=== PATIENT | male | born 1935 | race African-American/Black ===

== ENCOUNTER 2018-07-16 15:02 | Inpatient (IN) | payer MEDICARE, MEDICAID ==
[2018-07-16 16:03] LABS: #Eosinphils 0.1 thou/uL (0.0-0.7); #Lymphocytes 0.7 thou/uL (1.20-3.40); #Neutrophils 6.2 thou/uL (1.40-6.50); %Basophils 0.2 % (0.0-1.0); %Eosinophils 0.7 % (0.0-10.0); %Lymphocytes 8.3 % (21.0-51.0); %Monocytes 12.9 % (0.0-10.0); %Neutrophils 77.8 % (42.0-75.0); Hemoglobin 11.7 g/dL (14.0-18.0); Mean Corpuscular HGB CONC 31.1 g/dL (32.0-36.0); Mean Corpuscular Hemoglobin 31.5 pg (27.0-31.0); Mean Platelet Volume 9.2 fL (7.4-10.4); Platelet Count 269 thou/uL (130-400); RBC Distribution Width 13.5 % (11.5-14.5)
[2018-07-16 16:24] LABS: ALT (SGPT) 17 U/L (8-55); AST (SGOT) 25 U/L (5-34); Alkaline Phosphatase 80 U/L (40-150); Anion Gap 13 mmol/L (10-20); BUN (Urea Nitrogen) 17 mg/dL (8.4-25.7); Bilirubin, Total 0.7 mg/dL (0.2-1.2); CK (CPK) 37 U/L (30-200); Calc. Creatinine Clearance 0 mL/min (70-130); Calcium 10.1 mg/dL (7.8-10.44); Carbon Dioxide 33 mmol/L (23-31); Chloride 92 mmol/L (98-107); Estimated GFR-MDRD Greater than 90; Globulin 3.2 g/dL (2.4-3.5); Glucose 124 mg/dL (83-110); Potassium 5.6 mmol/L (3.5-5.1); Protein, Total 7.2 g/dL (5.8-8.1); Sodium 132 mmol/L (136-145)
--- NOTE | 2018-07-16 16:26 | CT ---
CT HEAD WITHOUT CONTRAST: Date: 07/16/18 Multiple axial tomograms obtained through the head without IV enhancement. INDICATION: Syncope with fall and injury to head. FINDINGS: Ventricles have normal size and position. There is no evidence of intracranial hemorrhage. No mass, e ana lilia, or infarct identified. Sinuses and mastoids are aerated. IMPRESSION: No acute abnormality identified. POS: [facility]
[2018-07-16 16:28] LABS: CKMB 2.9 ng/mL (0-6.6); Troponin I Less than 0.010 ng/mL (< 0.028)
--- NOTE | 2018-07-16 16:28 | RAD ---
CHEST 1 VIEW: Date: 07/16/18 INDICATION: History of syncopal episode. COMPARISON: Prior exam dated 04/18/16. FINDINGS: Severe emphysema is stable. Mild cardiomegaly is stable. No pleural effusion or pneumothorax is evide nt. Chronic osseous changes are similar. IMPRESSION: Stable emphysema. POS: [facility]
--- NOTE | 2018-07-16 16:29 | RAD ---
AP PELVIS: Date: 07/16/18 HISTORY: Fall with injury to pelvis. FINDINGS: Acute angulation in the subcapital region anteriorly on the right suggests a subcapital fracture. Pel vis appears intact. IMPRESSION: Evidence of a right subcapital fracture. POS: [facility]
--- NOTE | 2018-07-16 16:31 | RAD ---
RIGHT HIP 2 VIEWS: Date: 07/16/18 HISTORY: Right hip pain. FINDINGS: Somewhat unusual angularity of the superior femoral neck margin at the subcapital level. Possible efren ency along the superior margin. The cortical trabeculae extending across the inferior femoral neck an d into the head are intact, however. Mild degenerative changes of the hip. IMPRESSION: Conflicting findings regarding the possibility of a mildly angulated but nondisplaced subcapital frac ture. If symptoms warrant, please consider CT of the hip for better characterization. POS: [facility]
--- NOTE | 2018-07-16 17:11 | CT ---
CT PELVIS NONCONTRAST: 07/16/18 HISTORY: Fall. Hip pain. FINDINGS: Coronal images best demonstrate a very subtle impaction type fracture with minimal valgus angulation at the subcapital level of the right hip. Mild degenerative changes of the hips. Osseous structures are demineralized. Calcification throughout the arterial structures. IMPRESSION: Very subtle impacted and angulated subcapital fracture right hip. Findings were called to Dr. Garcia in the Emergency Department at 1638 hours. Code CR POS: [facility]
[2018-07-16 18:16] LABS: Bilirubin Negative (Negative); Blood, Urine Small (Negative); Clarity CLOUDY (Clear); Glucose, Urine (Dipstick) Negative (Negative); Leukocyte Small (Negative); Nitrite Positive (Negative); Protein, Urine (Dipstick) Negative (Neg-Trace); Specific Gravity, Urine 1.014 (1.002-1.036); Urobilinogen 0.2 mg/dL (0.2-1.0); pH, Urine 5.5 (5.0-9.0)
[2018-07-16 18:19] LABS: Bacteria/HPF 1+ HPF (None Seen); Pathc Cast-AUWi Flag 5.08 (0-2.49); RBC/HPF 0-3 HPF (0-3)
[2018-07-16 18:23] LABS: Hyaline Casts/LPF 0-3 HYALINE CAST LPF (0-3 Hyaline); Manual Microscopic Reviewed? No Path Casts Seen; Renal Epithelial None Seen HPF (0-3); Transitional Epithelial NONE SEEN HPF (0-3)
--- NOTE | 2018-07-16 18:41 | PDOC.FPRHP ---
- History of Present Illness Chief Complaint: Syncope History of Present Illness: Mr Elizondo is a 82yo pmh of COPD, HTN, HLD, reported hx of FL, presents with hip fracture after fall. Pt is a resident at the [facility]. Per nurse who cares for him daily he sits on the edge of his bed with his feet on the floor and will fall asleep and fall off the bed face first. This has been happening more frequently recently. He was found down and pt reports hitting his head. Reports not remembering fall. Reports pain in right hip. Also endorses dysuria and frequency. Reports FL >5 years ago and last echo >5 years ago. Per nursing staff pt has hx of frequently pocketing his pills in his cheek as he does not like to take them. He is on 3L O2 NC but turns it up to 4-5L himself. Reports SpO2 is typically 98-100% when they check. ED Course: Morphine 4mg - Allergies/Adverse Reactions Allergies Allergy/AdvReac Type Severity Reaction Status Date / Time No Known Drug Allergies Allergy Verified 04/18/16 04:20 - Home Medications Medication Instructions Recorded Confirmed Type Acetaminophen 650 mg PO Q6HR PRN 04/18/16 07/16/18 History Amlodipine Besylate [amLODIPine 10 mg PO DAILY 04/18/16 07/16/18 History Besylate] Furosemide [Lasix] 40 mg PO DAILY 04/18/16 07/16/18 History Pravastatin Sodium [Pravachol] 20 mg PO HS 04/18/16 07/16/18 History Ipratropium [Atrovent HFA] 2 puff INH QID #0 inh 04/22/16 07/16/18 Rx Albuterol Sulfate [Proair 90 mcg IH Q4H PRN 07/16/18 07/16/18 History Respiclick] Bimatoprost [Lumigan] 5 ml OP HS 07/16/18 07/16/18 History Gabapentin 300 mg PO HS 07/16/18 07/16/18 History Mag Hydrox/Aluminum Hyd/Simeth 30 ml PO QID PRN 07/16/18 07/16/18 History [Alum/Mag Hydroxide/Simethicone Susp] Magnesium Hydroxide [Milk of 30 ml PO DAILY PRN 07/16/18 07/16/18 History Magnesia] Mirtazapine [Remeron] 15 mg PO QAM 07/16/18 07/16/18 History Multivitamin W/ Minerals 1 tab PO DAILY 07/16/18 07/16/18 History [Theragran M] Potassium Chloride [K-Dur] 20 meq PO TID 07/16/18 07/16/18 History Promethazine [Phenergan] 25 mg PO Q6HR PRN 07/16/18 07/16/18 History Spironolactone 50 mg PO BID 07/16/18 07/16/18 History Tiotropium [place] [Spiriva 2 inh IH BID 07/16/18 07/16/18 History Respimat] - History PMHx: COPD, CAD, HLD, HTN, Dementia, CHF, Iron Def Anemia, GERD. Pt report FL > 5yrs ago but per assisted no hx of FL. PSHx: Hernia repair, Leg "steel vaughn placed" FHx: Sister- COPD Social: Lives at [facility]. Smoked tobacco 1.5pks/day 30-40 year- quit 10yrs ago. Denies drug or alcohol use. - Review of Systems General: denies: fever/chills, weight/appetite/sleep changes Eyes: denies: eye pain, vision changes ENT: denies: nasal congestion, rhinorrhea Respiratory: denies: cough, congestion, shortness of breath Cardiovascular: reports: edema. denies: chest pain Gastrointestinal: denies: nausea, vomiting, diarrhea, constipation Genitourinary: denies: dysuria, polyuria Skin: denies: rashes, lesions Musculoskeletal: reports: pain (right hip). denies: stiffness Neurological: reports: syncope. denies: numbness - Vital signs BP: 148/85 HR: 89 RR: 22 Tmax: 98.2 Pox: 100% on 3L Wt: 52.4kg - Physical Exam Constitutional: NAD, awake, alert and oriented, well developed HEENT: normocephalic and atraumatic, PERRLA, conjunctiva clear, normal nasal mucosa, MMM, oropharynx clear Neck: supple, trachea midline, no JVD Heart: pulses present (radial), other (2+ pitting edema to knees) -Heart: Distant heart sounds -Lungs: Wheezing bilaterally Abdomen: soft, non-tender, bowel sounds present Musculoskeletal: normal structure, normal tone Skin: capillary refill <2 seconds, other (venous stasis dermatitis) Psychiatric: other (A&Ox3 but not cooperative with answering questions. FDC reports this is typical behavior for him.) FMR H&P: Results - Labs Result Diagrams: 07/16/18 15:53 07/16/18 15:53 Lab results: WBC 8.0 thou/uL (4.8-10.8) 07/16/18 15:53 Hgb 11.7 g/dL (14.0-18.0) L 07/16/18 15:53 Hct 37.5 % (42.0-52.0) L 07/16/18 15:53 MCV 101.0 fL (78.0-98.0) H 07/16/18 15:53 Plt Count 269 thou/uL (130-400) 07/16/18 15:53 Neutrophils % 77.8 % (42.0-75.0) H 07/16/18 15:53 Sodium 132 mmol/L (136-145) L 07/16/18 15:53 Potassium 5.6 mmol/L (3.5-5.1) H 07/16/18 15:53 Chloride 92 mmol/L (98-107) L 07/16/18 15:53 Carbon Dioxide 33 mmol/L (23-31) H 07/16/18 15:53 BUN 17 mg/dL (8.4-25.7) 07/16/18 15:53 Creatinine 0.93 mg/dL (0.6-1.3) 07/16/18 15:53 Glucose 124 mg/dL (83-110) H 07/16/18 15:53 Calcium 10.1 mg/dL (7.8-10.44) 07/16/18 15:53 Total Bilirubin 0.7 mg/dL (0.2-1.2) 07/16/18 15:53 AST 25 U/L (5-34) 07/16/18 15:53 ALT 17 U/L (8-55) 07/16/18 15:53 Alkaline Phosphatase 80 U/L (40-150) 07/16/18 15:53 Creatine Kinase 37 U/L (30-200) 07/16/18 15:53 CK-MB (CK-2) 2.9 ng/mL (0-6.6) 07/16/18 15:53 Serum Total Protein 7.2 g/dL (5.8-8.1) 07/16/18 15:53 Albumin 4.0 g/dL (3.4-4.8) 10 15:53 Lipase 53 U/L (8-78) 07/16/18 15:53 Urine Ketones Negative mg/dL (Negative) 07/16/18 18:05 Urine Blood Small (Negative) H 07/16/18 18:05 Urine Nitrite Positive (Negative) H 07/16/18 18:05 Ur Leukocyte Esterase Small (Negative) H 07/16/18 18:05 Urine RBC 0-3 HPF (0-3) 07/16/18 18:05 Urine WBC 4-6 HPF (0-3) H 07/16/18 18:05 Ur Squamous Epith Cells 4-6 HPF (0-3) H 07/16/18 18:05 Urine Bacteria 1+ HPF (None Seen) H 07/16/18 18:05 - Radiology Interpretation CT scan - head Status: report reviewed by me Additional comment: No acute findings CT scan - pelvis Status: report reviewed by me Additional comment: subtle impacted & angulated subcapital fx of right hip Chest x-ray Status: report reviewed by me Additional comment: Stable emphysema Other Status: report reviewed by me Additional comment: Xray pelvis: Evidence of right subcapital fx Hip 2 view: Conflicting findings regarding possiblity of mildly angulated but nondisplaced subcapital fx. FMR H&P: A/P - Problem List (1) Hip fracture, right Current Visit: Yes Status: Acute Code(s): S72.001A - FRACTURE OF UNSP PART OF NECK OF RIGHT FEMUR, INIT (2) COPD exacerbation Current Visit: No Status: Acute Code(s): J44.1 - CHRONIC OBSTRUCTIVE PULMONARY DISEASE W (ACUTE) EXACERBATION (3) Chronic respiratory failure with hypoxia Current Visit: No Status: Chronic Code(s): J96.11 - CHRONIC RESPIRATORY FAILURE WITH HYPOXIA (4) Dyslipidemia Current Visit: No Status: Chronic Code(s): E78.5 - HYPERLIPIDEMIA, UNSPECIFIED (5) Hypertension Current Visit: No Status: Chronic Code(s): I10 - ESSENTIAL (PRIMARY) HYPERTENSION (6) Macrocytic anemia Current Visit: No Status: Chronic Code(s): D53.9 - NUTRITIONAL ANEMIA, UNSPECIFIED (7) Protein-calorie malnutrition, moderate Current Visit: No Status: Chronic Code(s): E44.0 - MODERATE PROTEIN-CALORIE MALNUTRITION (8) CHF (congestive heart failure) Current Visit: Yes Status: Acute Code(s): I50.9 - HEART FAILURE, UNSPECIFIED - Plan Mr Elizondo is an 82yo male with pmh of COPD, HLD, HTN and dementia presenting with Right hip fracture after fall and found to have mild CHF exacerbation Right hip fracture - Fall 2/2 falling asleep on side of bed, not witness by nursing staff but this is a recurrent event that nursing staff has witnessed in the past - CT: subtle impacted & angulated subcapital fx of right hip - Ortho consulted - Pt refused surgery, plan for nonoperative management - Tramadol and Morphine PRN for pain control - Will admit to tele Mild CHF exacerbation - Per nursing pt pockets pill inside mouth and it is possible he has not been getting his daily lasix - No record of Echo here or per assisted records, pt reports last imaging > 5 yrs - Echo tomorrow - Will hold home lasix and give 40mg IV - BNP ordered - Strict I&Os, daily wts and 1800ml fluid restriction Hyperkalemia - 5.4 in ED - Hold K supplement - Receiving IV lasix which will help correct this - Recheck BMP in AM UTI - UA c/w UTI - Urine Cx pending - Start Ceftriaxone CAD - Pt reports cath >5yrs ago, unknown results - Continue home meds HLD - Continue home meds Protein Calorie Malnutrition - Needle Loom Weaver consult - Will start Ensure TID after meals COPD, stable - Continue home inhalers - Pt on 3L NC at baseline - Will continue O2 Dementia - At baseline, continue to monitor - Continue home Remeron Iron def Anemia - Hgb 11.7 - MCV elevated - Continue to monitor GERD - Continue home meds Code Status: FULL DVT ppx: Lovenox FMR H&P: Upper Level - Pertinent history 82 y/o M w/ PMHx of of COPD on chronic O2 via 3L NC, HTN, and HLD presents for evaluation of LOC w/ fall and subsequent R-hip pain which occurred earlier today. Patient reports he does not remember falling and thinks he hit his head. States that he thinks he was getting up out of bed when it happened. Not taking any blood thinners. Patient is a resident at [facility]. No nursing staff in room. Pt reports cardiac hx w/ FL over 5 years ago. No acute complaints besides R-hip pain w/ movement. Pt reports increased urinary frequency and dysuria. Denies fevers/chills. Contacted assisted. Nurse at assisted notes that he has a hx of falling forward while sitting in chair when he falls asleep. She notes that patient fell asleep while sitting and leaning forward in chair resulting in fall. Nurse noted that he did hit his head. Nursing staff also notes that he has been pocketing his pills including his Lasix. - Pertinent findings BP 148/85 P 89 RR 22 Temp 98.2 DegF O2sat 100% on 3L NC WBC 8.0 Hgb 11.7 Neut 77.8% Na 132 Potassium 5.6 Cl 92 CO2 33 Gluc 124 Trop - <0.01 U/A Small blood, positive nitrite, small LE, 4-6 WBC, 1+ bacteria CXR Stable Emphysema Pelvis/Hip X-ray/CT Subtle angulated and subcapital fracture R-hip Brain CT NAD GEN: NAD, laying in bed w/ NC on HEENT: Normocephalic, atraumatic. Midly dry mucous membranes CARDS: RRR, no mumurs, rubs or gallops. Occasional PVCs noted on single lead monitor while in room PULM: Coarse breath sounds thoughout GI: Soft, non-ttp, no rebound tenderness, no rigidity, no guarding EXT: R-hip TTP. ROM and strength exam deferred 2/2 known R-hip fracture. 2+ pitting edema b/l to knees - Plan Date/Time: 07/16/181840 INishant. Devon Barker MD, have evaluated this patient and agree with findings/plan as outlined by internet e commerce specialist resident. Pertinent changes/additions are listed here. 82 y/o M w/: 1Gound level Fall w/ subsequent R-hip subcaptial fracture - Initial concern for possible syncopal episode from ER. However, upon speaking to [place] low suspicion of syncope w/ patient witnessed falling asleep and falling forward out of chair by nursing staff. - Patient does have a hx of CHF per [place] records and has not been taking his Lasix. Cannot rule out possible underlying arrhythmia as cause of fall. Will plan to admit to telemetry and obtain ECHO for further evaluation of this. - Ortho consulted from ER, awaiting recs - Will have PRN tramadol available for pain control 2) Hyperkalemia - Will hold potassium supplementation and give IV lasix - Likely elevated 2/2 not taking his lasix but continuing to take KCl supplement - Will plan to repeat BMP in 4 hours and again in the AM to monitor - No concerning EKG changes at this time 2) Complicated UTI - U/A consistent w/ UTI from ER - Will obtain UCx and start patient on IV Rocephin 3) Mild CHF Exacerbation - Will give 40 mg IV of Lasix and check BNP to evaluate volume status - Strict I/Os - Daily weights - ECHO as above 4) Chronic Hypoxic Hypercapneic Respiratory Failure 2/2 COPD - Cont. w/ 2-3L NC as this is patients home O2 requirement. Titrate O2 to maintain - Cont. w/ home inhaler regimen. PRN nebs available - Does not appear to be in acute exacerbation at this time 5) HTN -Cont. w/ home BP meds CODE STATUS: Full Code LOS: >2 midnights Diet: HH w/ 1500 mL Fluid restrict Assessment and Plan discussed w/ Attending Dr. Kirill Colindres who is in agreement Attending Addendum - Attending Addendum Date/Time: 07/16/181999 I personally evaluated the patient and discussed the management with Dr. Fair /Lucero. I agree with the History, Examination, Assessment and Plan documented above with any addition or exceptions noted below.
[2018-07-16] MEDS ORDERED: Ondansetron HCl/PF 4 MG/2 ML Vial IVP PRN (21:06)
[2018-07-16] MEDS ORDERED: Ondansetron ODT 4 MG TAB SL PRN (21:06)
[2018-07-16] MEDS ORDERED: Acetaminophen 325 MG TAB PO PRN (21:06)
[2018-07-16] MEDS ORDERED: Morphine 4 MG/ML VIAL SLOW IVP PRN ×2 (21:06→22:06)
[2018-07-16] MEDS ORDERED: Furosemide 40 MG/4 ML VIAL SLOW IVP SCH (22:06)
[2018-07-16] MEDS ORDERED: Ondansetron ODT 4 MG TAB PO PRN (22:06)
[2018-07-16] MEDS ORDERED: traMADol HCl 50 MG TAB PO PRN ×2 (22:06)
[2018-07-16] MEDS ORDERED: Gabapentin 300 MG CAP PO SCH (22:30)
[2018-07-16] MEDS ORDERED: Mometasone/Formoterol 120 PUFF INHALER INH SCH (22:30)
[2018-07-16] MEDS ORDERED: Spironolactone 25 MG TAB PO SCH (22:30)
[2018-07-16] MEDS ORDERED: Ipratropium Oral Inhaler (200 INHALATIONS) INH SCH (22:30)
[2018-07-16] MEDS: cefTRIAXone\\ROCEPHIN 1 GM in Sodium Chloride 0.9% 100 ML IVPB SCH (23:33)
[2018-07-17] MEDS ORDERED: Ipratropium Oral Inhaler (200 INHALATIONS) ONE (06:39)
[2018-07-17] MEDS ORDERED: Mometasone/Formoterol 120 PUFF INHALER ONE (06:39)
[2018-07-17] MEDS: Ipratropium Oral Inhaler (200 INHALATIONS) INH SCH ×4 (06:51→19:02)
[2018-07-17] MEDS: Mometasone/Formoterol 120 PUFF INHALER INH SCH ×2 (06:51→19:17)
[2018-07-17] MEDS ORDERED: Furosemide 40 MG/4 ML VIAL SLOW IVP SCH (09:00)
[2018-07-17] MEDS ORDERED: Prevnar 13-Val Conj/PF 0.5 ML SYRINGE IM ONE (09:00)
[2018-07-17] MEDS: Spironolactone 25 MG TAB PO SCH ×2 (11:19→16:28)
[2018-07-17] MEDS: Enoxaparin Sodium 40 MG/0.4 ML SYRINGE SC SCH (11:19)
[2018-07-17] MEDS: Amlodipine 10 MG TAB PO SCH (11:19)
[2018-07-17] MEDS: Mirtazapine 15 MG TAB PO SCH (11:19)
[2018-07-17] MEDS: Furosemide 40 MG TAB PO SCH (11:51)
[2018-07-17 12:50] LABS: ALT (SGPT) 14 U/L (8-55); AST (SGOT) 20 U/L (5-34); Albumin 3.5 g/dL (3.4-4.8); Alkaline Phosphatase 73 U/L (40-150); Anion Gap 16 mmol/L (10-20); BUN (Urea Nitrogen) 14 mg/dL (8.4-25.7); Bilirubin, Total 0.6 mg/dL (0.2-1.2); Calc. Creatinine Clearance 55 mL/min (70-130); Calcium 9.9 mg/dL (7.8-10.44); Carbon Dioxide 32 mmol/L (23-31); Chloride 89 mmol/L (98-107); Estimated GFR-MDRD Greater than 90; Globulin 3.4 g/dL (2.4-3.5); Glucose 65 mg/dL (83-110); Potassium 4.5 mmol/L (3.5-5.1); Protein, Total 6.9 g/dL (5.8-8.1); Sodium 132 mmol/L (136-145)
--- NOTE | 2018-07-17 15:05 | CON ---
DATE OF CONSULTATION: 07/16/2018 REQUESTING PHYSICIAN: Dr. Fair. HISTORY OF PRESENT ILLNESS: Mr. Elizondo is an 82-year-old gentleman who resides in a half-way in [place] and typically mobilizes with a wheelchair. By report, he was found down at the half-way earlier on the evening of July 16, striking his head. The patient reports that he does not remem teresa the fall. Upon trying to get him back up into a chair, he was found to have right hip pain and a s such, he was transferred to [facility] for workup. Workup included x-rays of the pelvis a nd right hip which showed a valgus impacted femoral neck fracture. The fracture was very hard to see on plain x-ray and CT scan essentially was needed to confirm the fracture was present. Upon my eval uation of Mr. Elizondo, I discussed with him treatment options and he stated "do not want, no cutting o n me." PAST MEDICAL HISTORY: Includes COPD, hypertension, reported history of myocardial infarction, broderick ia, gastroesophageal reflux. PAST SURGICAL HISTORY: Includes herniorrhaphy as well as prior open reduction internal fixation of h is lower extremity. MEDICATIONS: Include Tylenol, amlodipine, Lasix, Pravachol, Atrovent, ProAir, Lumigan, gabapentin, M ilk of Magnesia, vitamin replacement, K-Dur, spironolactone. ALLERGIES: None known. SOCIAL HISTORY: Lives in [facility]. He has a 35-45 pack year history of cigarette smoki ng, although did quit 10 years ago. Denies alcohol or drug use. REVIEW OF SYSTEMS: Denies fevers, chills, or sweats. Denies shortness of breath or recurrent chest pain. Denies numbness or tingling in lower extremity. PHYSICAL EXAMINATION: VITAL SIGNS: Temperature 98.2, heart rate 89, respiratory rate 22, and blood pressure 148/85. The p atient examined in his emergency room bed 20 at [facility]. HEENT: Atraumatic, normocephalic. HEART: Shows a regular rate and rhythm without obvious murmur. LUNGS: Remarkable for mild bilateral wheeze. Chest wall is nontender. ABDOMEN: Benign. PELVIS: Stable to compression. With compression, he does have some mild right groin discomfort. EXTREMITIES: Bilateral upper extremities are atraumatic at shoulder, elbow, wrist and hand. He has normal sensation in the radial, median, and ulnar distributions. Bilateral lower extremities remarka ble for atraumatic knee, ankle and feet. He has intact sensation over the dorsal and plantar surface s of his feet. The right hip is remarkable for no obvious shortening or external rotation, but with range of motion, he does have some groin discomfort. LABORATORY DATA: White count of 8, hematocrit of 37.5 and 268,000 platelets. X-RAYS: AP pelvis as well as 2-view hip x-ray demonstrates a nondisplaced fracture of the femoral ne ck with what appears to be just slight valgus alignment; however, on CT scan, there clearly is a smal l fracture line with a valgus impacted femoral neck, but without significant displacement. ASSESSMENT: An 82-year-old gentleman with minimally displaced valgus impacted femoral neck fracture. PLAN: Today, I had a couple of discussions with patient regarding treatment options. I have recomme nded proceeding with cannulated screw stabilization. The patient again states that he is not interes sonia in anyone cutting on him. I have discussed with patient this is very minimal surgical procedure, would allow him to move more comfortably and freely without risk of displacement of the fracture. H e again states that he is predominantly wheelchair bound and does not wish to have surgery. As such, we will follow patient expectantly. I do not think that his decision is completely out of order giv en the fact that this is a nondisplaced fracture; however, he clearly needs to be bed to chair mobili zed and needs to avoid any weightbearing until early healing takes place. We will follow patient per ipherally while he is in the hospital and then we will need to follow up with us in about 2-3 weeks f or reevaluation and follow up x-ray.
[2018-07-17] MEDS ORDERED: cefTRIAXone\\ROCEPHIN 1 GM in Sodium Chloride 0.9% 100 ML IVPB SCH (15:30)
[2018-07-17] MEDS ORDERED: CEFAZOLIN/Water 2 GM/20 ML SYRINGE SLOW IVP SCH (16:00)
[2018-07-17 16:38] LABS: Hemoglobin 10.8 g/dL (14.0-18.0); Mean Corpuscular HGB CONC 30.1 g/dL (32.0-36.0); Mean Platelet Volume 8.2 fL (7.4-10.4); Platelet Count 198 thou/uL (130-400); Red Blood Cell (RBC) Count 3.49 mill/uL (4.70-6.10); White Blood Cell (WBC) Count 5.2 thou/uL (4.8-10.8)
[2018-07-17 16:39] LABS: Eosinophils 3 % (0-10); Lymphocytes 24 % (21-51); MDiff Complete? YES; Manual Diff?? YES; Monocytes 27 % (0-10); Neutrophil 46 % (42-75)
[2018-07-17 16:40] LABS: Hypochromia SLIGHT = 6-15 cells (100X) (0-5/hpf); PLT Morphology Comment Appears Adequate
[2018-07-17] MEDS: Simvastatin 5 MG TAB PO SCH (20:52)
[2018-07-17] MEDS: Gabapentin 300 MG CAP PO SCH (20:52)
--- NOTE | 2018-07-17 21:36 | CON ---
DATE OF CONSULTATION: 07/17/2018 HISTORY OF PRESENT ILLNESS: Mr. Elizondo is an 82-year-old male who lives at [facility]. T he patient typically will sit on the edge of the bed and sometimes will fall asleep and will fall. Zack campos has had multiple falls. He fell yesterday face first. The patient complains of pain in the right hip and groin region. He was brought to the emergency room and x-rays and CT scan was obtained which showed nondisplaced subcapital femoral neck fracture of the right hip. ALLERGIES: None. MEDICAL ILLNESSES: COPD, coronary artery disease, hypertension, dementia, history of CHF, GERD. PAST SURGICAL HISTORY: Hernia repair and IM rodding of his leg. PHYSICAL EXAMINATION: EXTREMITIES: Examination of the right hip and leg. The patient is able to flex and extend the right hip with some pain. Skin is in good condition. The right lower extremity is neurovascularly intact . He has good peripheral pulses. IMPRESSION: Nondisplaced subcapital femoral neck fracture of the right hip. PLAN: The patient is a good candidate for multiple pinning of the subcapital femoral neck fracture o f the right hip. This would stabilize the fracture, so that he could safely get out of bed and move a round in bed or weightbear as tolerated. If he does not have the surgery, then there would be the pr obability that the fracture would displace and then he would require a bipolar prosthesis which is a much bigger surgery for him. We will schedule the surgery for tomorrow.
[2018-07-17] MEDS: cefTRIAXone\\ROCEPHIN 1 GM in Sodium Chloride 0.9% 100 ML IVPB SCH (23:41)
[2018-07-18 05:48] LABS: ALT (SGPT) 10 U/L (8-55); AST (SGOT) 18 U/L (5-34); Albumin 3.2 g/dL (3.4-4.8); Alkaline Phosphatase 68 U/L (40-150); Anion Gap 11 mmol/L (10-20); BUN (Urea Nitrogen) 17 mg/dL (8.4-25.7); Bilirubin, Total 0.4 mg/dL (0.2-1.2); Calc. Creatinine Clearance 55 mL/min (70-130); Calcium 9.7 mg/dL (7.8-10.44); Carbon Dioxide 35 mmol/L (23-31); Chloride 91 mmol/L (98-107); Estimated GFR-MDRD Greater than 90; Globulin 3.1 g/dL (2.4-3.5); Glucose 66 mg/dL (83-110); Potassium 4.4 mmol/L (3.5-5.1); Protein, Total 6.3 g/dL (5.8-8.1); Sodium 133 mmol/L (136-145)
[2018-07-18] MEDS: Ipratropium Oral Inhaler (200 INHALATIONS) INH SCH ×4 (06:22→19:07)
[2018-07-18] MEDS: Mometasone/Formoterol 120 PUFF INHALER INH SCH ×2 (06:25→19:06)
[2018-07-18 06:39] LABS: Hemoglobin 9.9 g/dL (14.0-18.0); Lymphocytes 18 % (21-51); MDiff Complete? YES; Mean Corpuscular HGB CONC 30.8 g/dL (32.0-36.0); Mean Corpuscular Hemoglobin 31.5 pg (27.0-31.0); Mean Platelet Volume 7.5 fL (7.4-10.4); Monocytes 14 % (0-10); Neutrophil 68 % (42-75); Platelet Count 235 thou/uL (130-400); RBC Distribution Width 12.9 % (11.5-14.5); Red Blood Cell (RBC) Count 3.15 mill/uL (4.70-6.10)
--- NOTE | 2018-07-18 07:12 | PDOC.FM ---
- Subjective Subjective: Patient preparing to head to surgery. No new complaints at this time. - Objective MAR Reviewed: Yes Vital Signs & Weight: Vital Signs (12 hours) Temp Pulse Resp BP Pulse Ox 07/18/18 06:25 85 16 91 L 07/18/18 06:22 85 16 91 L 07/18/18 03:47 98.8 F 95 18 105/55 L 94 L 07/17/18 20:00 98.7 F 90 16 122/63 96 Weight Admit Weight 52.277 kg Weight 52.22 kg Result Diagrams: 07/18/18 04:42 07/18/18 04:42 <Kaylee Yarbrough - Last Filed: 07/18/18 09:36> - Objective Vital Signs & Weight: Vital Signs (12 hours) Temp Pulse Resp BP BP Pulse Ox 07/18/18 20:00 97.4 F L 79 16 111/58 L 94 L 07/18/18 19:07 72 18 100 07/18/18 19:06 72 18 100 07/18/18 16:00 97.6 F 83 16 120/80 92 L 07/18/18 13:57 82 16 95 07/18/18 11:57 92 115/57 L Weight Admit Weight 52.277 kg Weight 52.22 kg I&O: 07/17/18 07/18/18 07/19/18 06:59 06:59 06:59 Intake Total 1110 Output Total 225 Balance 885 Result Diagrams: 07/18/18 04:42 07/18/18 04:42 <Aliya Gutiérrez - Last Filed: 07/18/18 23:46> Phys Exam - Physical Examination Constitutional: NAD Respiratory: clear to auscultation bilateral Cardiovascular: RRR, no significant murmur Gastrointestinal: soft, non-tender, no distention, positive bowel sounds Neurological: non-focal <Kaylee Yarbrough - Last Filed: 07/18/18 09:36> Dx/Plan (1) Hip fracture, right Code(s): S72.001A - FRACTURE OF UNSP PART OF NECK OF RIGHT FEMUR, INIT Status : Acute (2) Chronic respiratory failure with hypoxia Code(s): J96.11 - CHRONIC RESPIRATORY FAILURE WITH HYPOXIA Status: Chronic (3) Dyslipidemia Code(s): E78.5 - HYPERLIPIDEMIA, UNSPECIFIED Status: Chronic (4) Hypertension Code(s): I10 - ESSENTIAL (PRIMARY) HYPERTENSION Status: Chronic (5) Macrocytic anemia Code(s): D53.9 - NUTRITIONAL ANEMIA, UNSPECIFIED Status: Chronic (6) Protein-calorie malnutrition, moderate Code(s): E44.0 - MODERATE PROTEIN-CALORIE MALNUTRITION Status: Chronic (7) CHF (congestive heart failure) Code(s): I50.9 - HEART FAILURE, UNSPECIFIED Status: Acute - Plan Plan: Mr Elizondo is an 82yo male with pmh of COPD, HLD, HTN and dementia presenting with Right hip fracture after fall and found to have mild CHF exacerbation Right hip fracture - Fall 2/2 falling asleep on side of bed, not witness by nursing staff but this is a recurrent event that nursing staff has witnessed in the past - CT: subtle impacted & angulated subcapital fx of right hip - Ortho consulted - Plan for surgery today - Tramadol and Morphine PRN for pain control Mild CHF exacerbation - Per nursing pt pockets pill inside mouth and it is possible he has not been getting his daily lasix - pt reports last imaging >5 yrs - Echo pending - Lasix 40 PO daily - BNP 54 - Strict I&Os, daily wts and 1800ml fluid restriction Hyperkalemia, improved - 5.4 in ED->4.4 - Hold K supplement - Receiving Lasix - Recheck BMP in AM UTI - UA c/w UTI - prelim Urine Cx grew serratia marcescens - Continue Ceftriaxone, will consider transitioning to other abx when sensitivity numbers back CAD - Pt reports cath >5yrs ago, unknown results - Continue home meds HLD - Continue home meds Protein Calorie Malnutrition - Gasket Maker consult - Will start Ensure TID after meals COPD, stable - Continue home inhalers - Pt on 3L NC at baseline - Will continue O2 Dementia - At baseline, continue to monitor - Continue home Remeron Macrocytic anemia - Hgb 11.7->9.9 - MCV elevated - Continue to monitor GERD - Continue home meds Code Status: FULL DVT ppx: Lovenox <Kaylee Yarbrough - Last Filed: 07/18/18 09:36> Attending Addendum - Attending Addendum Date/Time: 07/18/18 [id number] I personally evaluated the patient and discussed the management with Dr. Yarbrough I agree with the History, Examination, Assessment and Plan documented above with any addition or exceptions noted below- Patient justb returned from surgery - had hip pinned. Sleepy and mumbling. Afebrile VSS. A/P: 1) UTI secondary to Serratia; continue current abx. 2) Hip fracture- s/p pin placement. Plans as per ortho. <Aliya Gutiérrez - Last Filed: 07/18/18 23:46>
[2018-07-18] MEDS: Spironolactone 25 MG TAB PO SCH ×2 (08:18→17:33)
[2018-07-18] MEDS ORDERED: Neomycin-Polymyxin 1 ML AMP ONE (09:02)
[2018-07-18] MEDS ORDERED: CEFAZOLIN/Water 2 GM/20 ML SYRINGE ONE (09:07)
[2018-07-18] MEDS ORDERED: Fentanyl 100 MCG/2 ML VIAL ONE (09:39)
[2018-07-18] MEDS ORDERED: Morphine Sulfate 2 MG/ML SYRINGE SLOW IVP PRN (10:55)
[2018-07-18] MEDS ORDERED: Ondansetron HCl/PF 4 MG/2 ML Vial IVP PRN ×2 (10:55→10:58)
[2018-07-18] MEDS ORDERED: Promethazine HCl 25 MG/ML VIAL SLOW IVP PRN (10:55)
[2018-07-18] MEDS ORDERED: Promethazine HCl 25 MG/ML VIAL IM PRN (10:55)
[2018-07-18] MEDS ORDERED: Promethazine 25 MG TAB PO PRN (10:57)
[2018-07-18] MEDS ORDERED: Acetaminophen 325 MG TAB PO PRN (10:57)
[2018-07-18] MEDS ORDERED: Milk Of Magnesia 30 ML UDCUP PO PRN ×2 (10:57→10:58)
[2018-07-18] MEDS ORDERED: Mag-Al Plus 1200 MG/1200 MG/120 MG/30 ML UDCUP PO PRN (10:57)
[2018-07-18] MEDS ORDERED: Cepastat Lozenges 1 LOZ PO PRN (10:58)
[2018-07-18] MEDS ORDERED: Fleet Enema 133 ML BOT PR PRN (10:58)
[2018-07-18] MEDS ORDERED: Bisacodyl 10 MG SUPP PR PRN (10:58)
[2018-07-18] MEDS ORDERED: Ondansetron ODT 4 MG TAB PO PRN (10:58)
--- NOTE | 2018-07-18 11:10 | OP ---
DATE OF PROCEDURE: 07/18/2018 PREOPERATIVE DIAGNOSIS: Nondisplaced impacted subcapital femoral neck fracture of the right hip. POSTOPERATIVE DIAGNOSIS: Nondisplaced impacted subcapital femoral neck fracture of the right hip. PROCEDURE: Multiple pinning of the subcapital femoral neck fracture of the right hip. SURGEON: Charles Rick M.D. ANESTHESIA: General. TECHNIQUE: The patient was given preoperative IV antibiotics, taken to the operating room, placed in a supine position. Satisfactory general anesthesia was performed. The patient was placed on the fr acture table. All bony prominences were well-padded. There was no traction applied to the right low er extremity. The lateral aspect of the right hip and thigh were sterilely prepped and draped in the usual fashion. Under fluoroscopic visualization, appropriate incision site was found and 1.5 cm inc ision was made in the lateral aspect of the proximal thigh. Under fluoroscopic visualization, 2 guid e pins were placed up through the femoral neck crossing the fracture into the femoral head. They wer e measured and two 6.5 cannulated screws were placed into the femoral head and neck providing good fi xation and stability for the femoral neck fracture. The guide pins were removed. The wound was irri gated with antibiotic solution and closed using 3-0 Rapide. Sterile dressing was applied. The patie nt was taken off the fracture table. He was awakened, extubated, and transferred to the [facility] in stable condition. ESTIMATED BLOOD LOSS: None. COMPLICATIONS: None.
[2018-07-18] MEDS ORDERED: PROVENTIL INHALER 6.7 G (200 INHALATIONS) INH PRN (11:30)
[2018-07-18] MEDS ORDERED: Lidocaine 1% PF 5 ML VIAL ONE (11:32)
[2018-07-18] MEDS ORDERED: PROPOFOL 200 MG/20 ML VIAL ONE (11:32)
[2018-07-18] MEDS ORDERED: Ondansetron HCl/PF 4 MG/2 ML Vial ONE (11:32)
[2018-07-18] MEDS: Amlodipine 10 MG TAB PO SCH (11:57)
[2018-07-18] MEDS: Mirtazapine 15 MG TAB PO SCH (11:58)
[2018-07-18] MEDS: Furosemide 40 MG TAB PO SCH (11:58)
[2018-07-18] MEDS: Enoxaparin Sodium 40 MG/0.4 ML SYRINGE SC SCH (12:07)
--- NOTE | 2018-07-18 14:05 | RAD ---
INTRAOPERATIVE FLUOROSCOPIC IMAGING OF RIGHT HIP: Date: 07/18/18 INDICATION: Fracture fixation of right hip. FINDINGS: There are two cannulated screws traversing the femoral head and neck. These traverse the previously d escribed subcapital fracture. IMPRESSION: Intraoperative fluoroscopic imaging of the right hip. POS: ASIYA
[2018-07-18] MEDS: CEFAZOLIN/Water 2 GM/20 ML SYRINGE SLOW IVP SCH (16:25)
[2018-07-18] MEDS: Potassium Chloride 20 MEQ TAB PO SCH ×2 (16:25→21:58)
[2018-07-18] MEDS ORDERED: Non-Formulary Item 1 EACH (Tiotropium Bromide [Spiriva Respimat] 2 INH) IH SCH (21:00)
[2018-07-18] MEDS: Ferrous Gluconate 324 MG TAB PO SCH (21:58)
[2018-07-18] MEDS: Gabapentin 300 MG CAP PO SCH (21:58)
[2018-07-18] MEDS: Senokot S 8.6-50 MG TAB PO SCH (21:59)
[2018-07-18] MEDS: Simvastatin 5 MG TAB PO SCH (21:59)
[2018-07-18] MEDS: Latanoprost 0.005% Ophth Soln 2.5 ml Bottle EA EYE SCH (21:59)
[2018-07-18] MEDS: cefTRIAXone\\ROCEPHIN 1 GM in Sodium Chloride 0.9% 100 ML IVPB SCH (23:33)
[2018-07-19] MEDS: CEFAZOLIN/Water 2 GM/20 ML SYRINGE SLOW IVP SCH (00:37)
[2018-07-19 05:56] LABS: Hemoglobin 10.7 g/dL (14.0-18.0); Mean Corpuscular HGB CONC 30.8 g/dL (32.0-36.0); Mean Corpuscular Hemoglobin 31.7 pg (27.0-31.0); Mean Platelet Volume 7.6 fL (7.4-10.4); Platelet Count 227 thou/uL (130-400); RBC Distribution Width 12.9 % (11.5-14.5); Red Blood Cell (RBC) Count 3.38 mill/uL (4.70-6.10); White Blood Cell (WBC) Count 5.7 thou/uL (4.8-10.8)
[2018-07-19 06:14] LABS: ALT (SGPT) 9 U/L (8-55); AST (SGOT) 25 U/L (5-34); Albumin 3.2 g/dL (3.4-4.8); Alkaline Phosphatase 69 U/L (40-150); Anion Gap 10 mmol/L (10-20); BUN (Urea Nitrogen) 10 mg/dL (8.4-25.7); Bilirubin, Total 0.3 mg/dL (0.2-1.2); Calc. Creatinine Clearance 59 mL/min (70-130); Calcium 9.4 mg/dL (7.8-10.44); Carbon Dioxide 34 mmol/L (23-31); Chloride 90 mmol/L (98-107); Estimated GFR-MDRD Greater than 90; Globulin 3.4 g/dL (2.4-3.5); Glucose 99 mg/dL (83-110); Potassium 4.9 mmol/L (3.5-5.1); Protein, Total 6.6 g/dL (5.8-8.1); Sodium 129 mmol/L (136-145)
[2018-07-19] MEDS: Ipratropium Oral Inhaler (200 INHALATIONS) INH SCH ×4 (06:35→19:03)
[2018-07-19] MEDS: Mometasone/Formoterol 120 PUFF INHALER INH SCH ×2 (06:36→19:05)
--- NOTE | 2018-07-19 06:36 | PDOC.FM ---
- Subjective Subjective: Patient reports his hip is sore this morning. Has been drinking some soda. No new complaints. Says he passes gas infrequently. - Objective MAR Reviewed: Yes Vital Signs & Weight: Vital Signs (12 hours) Temp Pulse Resp BP Pulse Ox 07/19/18 04:00 97.7 F 66 12 125/60 98 07/18/18 20:00 97.4 F L 79 16 111/58 L 94 L 07/18/18 19:07 72 18 100 07/18/18 19:06 72 18 100 Weight Admit Weight 52.277 kg Weight 52.73 kg I&O: 07/17/18 07/18/18 07/19/18 06:59 06:59 06:59 Intake Total 1110 Output Total 225 Balance 885 Result Diagrams: 07/19/18 05:35 07/19/18 05:35 <Kaylee Yarbrough - Last Filed: 07/19/18 10:02> - Objective Vital Signs & Weight: Vital Signs (12 hours) Temp Pulse Resp BP Pulse Ox 07/19/18 11:43 97.5 F L 87 18 119/63 96 07/19/18 10:27 81 16 93 L 07/19/18 08:05 63 96 07/19/18 07:48 97.2 F L 63 14 121/59 L 96 07/19/18 06:36 63 18 95 07/19/18 06:35 63 18 95 07/19/18 04:00 97.7 F 66 12 125/60 98 Weight Admit Weight 52.277 kg Weight 52.73 kg I&O: 07/18/18 07/19/18 07/20/18 06:59 06:59 06:59 Intake Total 1110 240 Output Total 225 Balance 885 240 Result Diagrams: 07/19/18 05:35 07/19/18 05:35 <Aliya Gutiérrez - Last Filed: 07/19/18 11:53> Phys Exam - Physical Examination Constitutional: NAD Respiratory: no wheezing, no rales, no rhonchi, clear to auscultation bilateral Cardiovascular: RRR, no significant murmur Gastrointestinal: soft, non-tender, positive bowel sounds Musculoskeletal: no edema Neurological: non-focal Psychiatric: normal affect Skin: normal turgor <Kaylee Yarbrough - Last Filed: 07/19/18 10:02> Dx/Plan (1) Hip fracture, right Code(s): S72.001A - FRACTURE OF UNSP PART OF NECK OF RIGHT FEMUR, INIT Status : Acute (2) Chronic respiratory failure with hypoxia Code(s): J96.11 - CHRONIC RESPIRATORY FAILURE WITH HYPOXIA Status: Chronic (3) Dyslipidemia Code(s): E78.5 - HYPERLIPIDEMIA, UNSPECIFIED Status: Chronic (4) Hypertension Code(s): I10 - ESSENTIAL (PRIMARY) HYPERTENSION Status: Chronic (5) Macrocytic anemia Code(s): D53.9 - NUTRITIONAL ANEMIA, UNSPECIFIED Status: Chronic (6) Protein-calorie malnutrition, moderate Code(s): E44.0 - MODERATE PROTEIN-CALORIE MALNUTRITION Status: Chronic (7) CHF (congestive heart failure) Code(s): I50.9 - HEART FAILURE, UNSPECIFIED Status: Acute - Plan Plan: Mr Elizondo is an 82yo male with pmh of COPD, HLD, HTN and dementia presenting with Right hip fracture after fall and found to have mild CHF exacerbation Right hip fracture, POD #1 s/p pinning - Fall 2/2 falling asleep on side of bed - CT: subtle impacted & angulated subcapital fx of right hip - Tramadol and Morphine PRN for pain control - ortho recs - will move off tele floor today Mild CHF exacerbation - Per nursing pt pockets pill inside mouth and it is possible he has not been getting his daily lasix - pt reports last imaging >5 yrs - Echo pending - Lasix 40 PO daily - BNP 54 - Strict I&Os, daily wts and 1800ml fluid restriction UTI - UA c/w UTI - Urine Cx grew serratia marcescens and yeast - Ceftriaxone (07/16-). Switch to PO abx today. Sensitive to cefdinir. Will treat 4 more days to complete 7 day course. Hyperkalemia, improved - 5.4 in ED->4.4 - Hold K supplement - Receiving Lasix - Recheck BMP in AM CAD - Pt reports cath >5yrs ago, unknown results - Continue home meds HLD - Continue home meds Protein Calorie Malnutrition - Wheel[employer] consult - Will start Ensure TID after meals COPD, stable - Continue home inhalers - Pt on 3L NC at baseline - Will continue O2 Dementia - At baseline, continue to monitor - Continue home Remeron Macrocytic anemia - Hgb 11.7->9.9->10.7 - Continue to monitor GERD - Continue home meds Code Status: FULL DVT ppx: Lovenox <Kaylee Yarbrough - Last Filed: 07/19/18 10:02> Attending Addendum - Attending Addendum Date/Time: 07/19/18 [id number] I personally evaluated the patient and discussed the management with Dr. Yarbrough I agree with the History, Examination, Assessment and Plan documented above with any addition or exceptions noted below- Patient sitting up. Mild pain with hip. Afebrile VSS. A/P: 1) s/p fall with resultant hip fx- s/p pinning- continue plans as per ortho. Will transfer from telemetry as cardiac monitoring not needed any further. 2) HTN- stable. 3) Hyponatremia- will check urine and serum osm and urine Na. <Aliya Gutiérrez - Last Filed: 07/19/18 11:53>
[2018-07-19 06:38] LABS: Band 7 % (5-11); Eosinophils 1 % (0-10); Hemoglobin 10.6 g/dL (14.0-18.0); Lymphocytes 15 % (21-51); MDiff Complete? YES; Mean Corpuscular HGB CONC 30.8 g/dL (32.0-36.0); Mean Corpuscular Hemoglobin 31.6 pg (27.0-31.0); Mean Platelet Volume 7.8 fL (7.4-10.4); Monocytes 22 % (0-10); Neutrophil 55 % (42-75); Platelet Count 229 thou/uL (130-400); Red Blood Cell (RBC) Count 3.34 mill/uL (4.70-6.10); White Blood Cell (WBC) Count 6.1 thou/uL (4.8-10.8)
[2018-07-19] MEDS: Enoxaparin Sodium 40 MG/0.4 ML SYRINGE SC SCH (08:05)
[2018-07-19] MEDS: Spironolactone 25 MG TAB PO SCH ×2 (08:05→17:53)
[2018-07-19] MEDS: Amlodipine 10 MG TAB PO SCH (08:05)
[2018-07-19] MEDS: Multivitamin W/ Minerals 1 TAB PO SCH (08:06)
[2018-07-19] MEDS: Mirtazapine 15 MG TAB PO SCH (08:06)
[2018-07-19] MEDS: Senokot S 8.6-50 MG TAB PO SCH ×2 (08:06→21:53)
[2018-07-19] MEDS: Potassium Chloride 20 MEQ TAB PO SCH ×3 (08:06→21:53)
[2018-07-19] MEDS: Furosemide 40 MG TAB PO SCH (08:06)
[2018-07-19] MEDS: Ferrous Gluconate 324 MG TAB PO SCH ×2 (08:06→21:52)
[2018-07-19] MEDS ORDERED: Furosemide 20 MG TAB PO SCH (09:00)
[2018-07-19] MEDS ORDERED: Multivitamin W/ Minerals 1 TAB PO SCH (09:00)
[2018-07-19] MEDS: Cefdinir 300 MG CAP PO SCH (20:15)
[2018-07-19] MEDS: Simvastatin 5 MG TAB PO SCH (21:52)
[2018-07-19] MEDS: Gabapentin 300 MG CAP PO SCH (21:52)
[2018-07-19] MEDS: Latanoprost 0.005% Ophth Soln 2.5 ml Bottle EA EYE SCH (22:03)
[2018-07-20 05:18] VITALS: BMI 16.1
--- NOTE | 2018-07-20 06:26 | PDOC.FM ---
- Subjective Subjective: Pt complains of hip pain this morning. He does not like the food he has for breakfast. - Objective Vital Signs & Weight: Vital Signs (12 hours) Temp Pulse Resp BP Pulse Ox 07/20/18 04:56 98.3 F 126/75 07/20/18 04:00 93 19 100 07/20/18 00:00 98.5 F 96 19 121/65 99 07/19/18 20:20 94 L 07/19/18 20:00 98.1 F 89 20 118/58 L 94 L 07/19/18 19:03 93 18 97 Weight Admit Weight 52.277 kg Weight 52.39 kg I&O: 07/18/18 07/19/18 07/20/18 06:59 06:59 06:59 Intake Total 1110 840 Output Total 225 1150 Balance 885 -310 Result Diagrams: 07/20/18 06:47 07/20/18 06:47 Phys Exam - Physical Examination Constitutional: NAD Neck: no nodes, supple Respiratory: no wheezing, clear to auscultation bilateral Lung sounds distant Cardiovascular: RRR heart sounds distant Gastrointestinal: soft, no distention, positive bowel sounds Musculoskeletal: no edema, pulses present Neurological: moves all 4 limbs Psychiatric: normal affect Dx/Plan (1) CHF (congestive heart failure) Code(s): I50.9 - HEART FAILURE, UNSPECIFIED Status: Chronic (2) Hip fracture, right Code(s): S72.001A - FRACTURE OF UNSP PART OF NECK OF RIGHT FEMUR, INIT Status : Acute (3) Dyslipidemia Code(s): E78.5 - HYPERLIPIDEMIA, UNSPECIFIED Status: Chronic (4) Hypertension Code(s): I10 - ESSENTIAL (PRIMARY) HYPERTENSION Status: Chronic (5) Macrocytic anemia Code(s): D53.9 - NUTRITIONAL ANEMIA, UNSPECIFIED Status: Chronic (6) Protein-calorie malnutrition, moderate Code(s): E44.0 - MODERATE PROTEIN-CALORIE MALNUTRITION Status: Chronic - Plan Plan: Mr Elizondo is an 82yo male with pmh of COPD, HLD, HTN and dementia POD#2 Right hip internal fixation after fall Right hip fracture, POD #2 s/p internal fixation - Fall 2/2 falling asleep on side of bed - CT: subtle impacted & angulated subcapital fx of right hip - Tramadol and Morphine PRN for pain control - ortho recs Mild CHF exacerbation - Per nursing pt pockets pill inside mouth and it is possible he has not been getting his daily lasix - pt reports last imaging >5 yrs - Echo pending - Lasix 40 PO daily - BNP 54 - Strict I&Os, daily wts and 1800ml fluid restriction - I/Os: yesterday -310 UTI - UA c/w UTI - Urine Cx grew serratia marcescens and yeast - Ceftriaxone (07/16-). PO cefdinir (started 08/19). Will treat 3 more days to complete 7 day course. Hyperkalemia, resolved - 5.4 in ED->4.4 ->5.3 - Hold K supplement - Receiving Lasix CAD - Pt reports cath >5yrs ago, unknown results - Continue home meds HLD - Continue home meds Protein Calorie Malnutrition - [employer] consult - Will start Ensure TID after meals COPD, stable - Continue home inhalers - Pt on 3L NC at baseline - Will continue O2 Dementia - At baseline, continue to monitor - Continue home Remeron Macrocytic anemia - Hgb 11.7->9.9->10.7-> 11.4 - Continue to monitor GERD - Continue home meds Code Status: FULL DVT ppx: Lovenox
[2018-07-20] MEDS: Mometasone/Formoterol 120 PUFF INHALER INH SCH (07:11)
[2018-07-20] MEDS: Ipratropium Oral Inhaler (200 INHALATIONS) INH SCH ×3 (07:13→14:15)
[2018-07-20 07:16] LABS: #Eosinphils 0.1 thou/uL (0.0-0.7); #Lymphocytes 0.8 thou/uL (1.20-3.40); #Monocytes 0.9 thou/uL (0.11-0.59); #Neutrophils 5.8 thou/uL (1.40-6.50); %Basophils 0.1 % (0.0-1.0); %Eosinophils 1.1 % (0.0-10.0); %Lymphocytes 9.9 % (21.0-51.0); %Monocytes 11.4 % (0.0-10.0); %Neutrophils 77.4 % (42.0-75.0); Hemoglobin 11.4 g/dL (14.0-18.0); Mean Corpuscular HGB CONC 30.1 g/dL (32.0-36.0); Mean Corpuscular Hemoglobin 30.5 pg (27.0-31.0); Mean Platelet Volume 7.1 fL (7.4-10.4); Platelet Count 244 thou/uL (130-400); Red Blood Cell (RBC) Count 3.72 mill/uL (4.70-6.10); White Blood Cell (WBC) Count 7.5 thou/uL (4.8-10.8)
[2018-07-20 07:41] LABS: Anion Gap 13 mmol/L (10-20); BUN (Urea Nitrogen) 11 mg/dL (8.4-25.7); Calc. Creatinine Clearance 55 mL/min (70-130); Calcium 10.4 mg/dL (7.8-10.44); Carbon Dioxide 35 mmol/L (23-31); Chloride 86 mmol/L (98-107); Estimated GFR-MDRD Greater than 90; Glucose 76 mg/dL (83-110); Potassium 5.3 mmol/L (3.5-5.1); Sodium 129 mmol/L (136-145)
[2018-07-20] MEDS: Cefdinir 300 MG CAP PO SCH (08:28)
[2018-07-20] MEDS: Enoxaparin Sodium 40 MG/0.4 ML SYRINGE SC SCH (08:28)
[2018-07-20] MEDS: Furosemide 40 MG TAB PO SCH (08:28)
[2018-07-20] MEDS: Mirtazapine 15 MG TAB PO SCH (08:28)
[2018-07-20] MEDS: Amlodipine 10 MG TAB PO SCH (08:28)
[2018-07-20] MEDS: Potassium Chloride 20 MEQ TAB PO SCH (08:29)
[2018-07-20] MEDS: Senokot S 8.6-50 MG TAB PO SCH (09:22)
[2018-07-20] MEDS: Ferrous Gluconate 324 MG TAB PO SCH (09:22)
[2018-07-20] MEDS: Multivitamin W/ Minerals 1 TAB PO SCH (09:22)
[2018-07-20] MEDS: Spironolactone 25 MG TAB PO SCH (09:22)
--- NOTE | 2018-07-20 12:11 | PRG ---
DATE OF SERVICE: 07/20/2018 Mr. Elizondo is status post right hip fracture surgery. He had some fluid congestion several days ago which responded well to Lasix. His sodium has dropped to 129, BUN is 11, creatinine 0.79. His echo does demonstrate diastolic dysfunction and a normal ejection fraction. From our standpoint, he is clarisse zavaleta ready for discharge to assisted either today or tomorrow. He will need close followup of hi s hyponatremia as an outpatient.
[2018-07-20 16:03] VITALS: BP 141/92; TEMP 97.5
--- NOTE | 2018-07-21 09:17 | DIS-2 ---
DATE OF ADMISSION: 07/16/2018 DATE OF DISCHARGE: 07/20/2018 RESIDENT: Rhona Ahser M.D. ADMITTING ATTENDING: Kirill Colindres M.D. DISCHARGE ATTENDING: Josue Santos M.D. CONSULTATIONS: Dr. Rick, Orthopedics, consulted on 07/16/2018. PROCEDURES: 1. Brain CT on 07/16/2018 showed no acute abnormality. 2. Chest x-ray on 07/16/2018 showed stable emphysema. 3. Hip x-ray on 07/16/2018 showed mildly angulated but nondisplaced subcapital fracture. 4. Pelvis x-ray on 07/16/2018. Impression: Evidence of right subcapital fracture. 5. Pelvis CT on 07/16/2018. Impression: Very subtle impacted and angulated subcapital fracture of the right hip. 6. Hip x-ray on 07/18/2018 of fluoroscopy imaging: There are two cannulated screws traversing the femoral head and neck, these traversed the previously described subcapital fracture. 7. On 07/18/2018, multiple pinning of the subcapital femoral neck fracture of the right hip by surgeon, Dr. Charles Rick. Postoperative diagnoses of nondisplaced impacted subcapital femoral neck fracture of the right hip. 8. On 07/20/2018, echocardiogram report. Summary: Ejection fraction of 50%-55 %. E/A flow reversal noted suggestive of diastolic dysfunction. Left atrium is moderately to severely dilated. Mild mitral and tricuspid regurgitation is present. Severely thickened left coronary cusp with normal excursion. PRIMARY DIAGNOSIS: Nondisplaced impacted subcapital femoral neck fracture of the right hip. SECONDARY DIAGNOSES: 1. Congestive heart failure exacerbation. 2. Urinary tract infection. 3. Hyperkalemia, resolved. 4. Coronary artery disease. 5. Hyperlipidemia. 6. Protein calorie malnutrition. 7. Chronic obstructive pulmonary disease, stable. 8. Dementia. 9. Macrocytic anemia. 10. Gastroesophageal reflux disease. DISCHARGE MEDICATIONS: 1. Cefdinir 300 mg oral b.i.d. 2. Ultram 50 mg oral q.6 hours p.r.n. for mild to moderate pain. 3. Potassium chloride 20 mEq p.o. daily. 4. Sennosides docusate 2 tabs oral b.i.d. p.r.n. for constipation. 5. Pravastatin 20 mg p.o. at bedtime. 6. Furosemide 40 mg p.o. daily. 7. Spironolactone 50 mg p.o. b.i.d. 8. Tiotropium 2 inhalations twice daily. 9. Promethazine 25 mg p.o. q.6 hours p.r.n. for nausea and vomiting. 10. Magnesium hydroxide/aluminum 30 mL oral 4 times daily p.r.n. for indigestion. 11. Multivitamin with minerals 1 tab p.o. daily. 12. Magnesium hydroxide 30 mL p.o. daily p.r.n. for constipation. 13. Bimatoprost 5 mL ophthalmic at bedtime. 14. Albuterol sulfate 90 mcg inhalation q.4 hours p.r.n. for shortness of breath and/or wheezing. DISCONTINUED MEDICATIONS: 1. Acetaminophen 650 mg q.6 hours p.r.n. for pain. 2. Potassium chloride 20 mEq p.o. t.i.d. BRIEF HISTORY OF PRESENT ILLNESS AND HOSPITAL COURSE: Mr. Elizondo is an 82-year- old with past medical history of COPD, hypertension, hyperlipidemia, reported history of SC and presented with hip fracture after a fall. The patient is a resident of the [facility]. Per nurse, who cares for him daily, he sits at the edge of his bed with his feet in the floor and falls asleep and falls off the bed face first. This has been happening more frequently recently. He was found down and patient reported hitting his head. Reports not remembering the fall. He reported pain in his right hip. He also endorsed dysuria and frequency. Reported SC greater than 5 years ago and his last echo greater than 5 years ago. Per nursing staff, he has a history of recently pocketing his pills in his cheek as he does not like to take them. He is on 3 liters O2 nasal cannula, but turns it up to 4-5 liters and self. Reports his pO2 is typically 98%-100% when I checked. In the ED, he received morphine 4 mg. For the patient's hip fracture, Ortho was consulted and did surgery on the hip on 07/18/2018. Mild congestive heart failure exacerbation. The patient packs his pills inside his mouth 1and did not always get his daily Lasix. He was given an echo, which results are recorded above in procedures. He was kept on strict I's and O's with daily weights and 1800 mL fluid restriction. His BNP was 54. His urinary tract infection grew Serratia marcescens and yeast. The patient was started on ceftriaxone and switched to p.o. cefdinir on 07/19. The patient will be treated for 3 additional days to complete a 7-day course. Hyperkalemia. The patient's potassium was 5.4 in the ED, which improved to 4.4 and then went back up to 5.3. Potassium was held on the last day of his discharge. Please start his potassium again tomorrow. This increases probably due to patient's pocketing his Lasix while continuing to take his potassium supplement. For chronic obstructive pulmonary disease, continued on his home inhalers. The patient was stable at 3 liters nasal cannula which he uses at baseline. Macrocytic anemia. The patient's hemoglobin on admission was 11.7, on discharge was 11.4. Overall, stable throughout his stay. DISPOSITION: Stable. DISCHARGE INSTRUCTIONS: 1. Location: [facility]. 2. Diet: Heart healthy, fluid restricted to 800 mL per day. 3. Activity: As tolerated. 4. Followup: Follow up with [facility]. 5. Follow up with Dr. Pretty within 14 days. 6. Follow up with Dr. Rick in 7-14 days for hip. [facility]
== END 2018-07-20 17:11 | DRG 480 ==
LOC: ERS 15:02 → 2NO 18:10 → SURG A 07-19 14:32
PROVIDERS: ADMIT Student in an Organized Health Care Education/Training Program; ATTEND Student in an Organized Health Care Education/Training Program
PROC: 0QH604Z Insertion of Internal Fixation Device into Right Upper Femur, Open Approach (ICD-10-PCS; principal; 2018-07-18)
DX: S72.011A Unspecified intracapsular fracture of right femur, initial encounter for closed fracture (principal); I50.33 Acute on chronic diastolic (congestive) heart failure; E87.1 Hypo-osmolality and hyponatremia; E44.0 Moderate protein-calorie malnutrition; B37.49 Other urogenital candidiasis; J96.11 Chronic respiratory failure with hypoxia; Z68.1 Body mass index [BMI] 19.9 or less, adult; I11.0 Hypertensive heart disease with heart failure; E87.5 Hyperkalemia; I25.10 Atherosclerotic heart disease of native coronary artery without angina pectoris; E78.5 Hyperlipidemia, unspecified; F03.90 Unspecified dementia, unspecified severity, without behavioral disturbance, psychotic disturbance, mood disturbance, and anxiety; D53.9 Nutritional anemia, unspecified; K21.9 Gastro-esophageal reflux disease without esophagitis; B96.89 Other specified bacterial agents as the cause of diseases classified elsewhere; Z99.81 Dependence on supplemental oxygen; J43.9 Emphysema, unspecified; D50.9 Iron deficiency anemia, unspecified; Z99.3 Dependence on wheelchair
CPT/HCPCS: 36415; 70450; 71045; 72170; 72192; 76001; 80048; 80053; 81003; 81015; 82553; 83690; 83880; 83930; 83935; 84300; 84484; 85025; 85027; 85610; 87077; 87086; 87186; 90471; 90670; 93005; 93306; 94664; C1713; C1769; G0009; G8978-GP-CN; G8979-GP-CL; G8987-GO-CK; G8988-GO-CJ; J0696; J1650; J1940; J2001; J2270; J2405; J2704; J3010; J7050